=== PATIENT | female | born 1990 | race Caucasian/White ===

== ENCOUNTER 2019-06-22 15:06 | Emergency (ER) | payer SELFPAY ==
[2019-06-22 15:26] VITALS: BP 117/62
--- NOTE | 2019-06-22 15:35 | UC ---
Ear Complaint HPI - HPI Summary HPI Summary: 28 yo woman with URI x 4 days, with progressive ear pain and tinnitus, with decreased hearing on the left. Mildly painful. Hx of recurrent OM in early years , but not recently. - History of Current Complaint Chief Complaint: UCGeneralIllness Stated Complaint: EARS FULL,SINUS COMPLAINT Time Seen by Provider: 06/22/19 15:27 Hx Obtained From: Patient Hx Last Menstrual Period: 06/22/19 ?: No - menstruating now Onset/Duration: Gradual Onset, Lasting Days - 4 Severity Initially: Mild Severity Currently: Mild Pain Intensity: 0 Alleviating Factors: OTC Meds - using sudafed. Associated Signs/Symptoms: Positive: URI Symptoms - Allergies/Home Medications Allergies/Adverse Reactions: Allergies Allergy/AdvReac Type Severity Reaction Status Date / Time No Known Allergies Allergy Verified 06/22/19 15:20 Home Medications: Home Medications Pseudoephedrine HCl [Nasal Decongestant] 1 tab PO Q6H 06/22/19 [History Confirmed 06/22/19] PMH/Surg Hx/FS Hx/Imm Hx Previously Healthy: Yes - Surgical History Surgical History: Yes Surgery Procedure, Year, and Place: L trigger thumb - Family History Known Family History: Positive: None - parents alive and well., Other - sister has narcolepsy. - Social History Occupation: Employed Full-time Alcohol Use: None Substance Use Type: None Smoking Status (MU): Never Smoked Tobacco Review of Systems All Other Systems Reviewed And Are Negative: Yes Constitutional: Positive: Negative Skin: Positive: Negative Eyes: Positive: Negative ENT: Positive: Ear Ache, Nasal Discharge. Negative: Sinus Congestion, Sinus Pain/Tenderness Respiratory: Positive: Cough. Negative: Shortness Of Breath Cardiovascular: Positive: Negative Gastrointestinal: Positive: Negative Genitourinary: Positive: Negative Motor: Positive: Negative Neurovascular: Positive: Negative Neurological: Positive: Negative Psychological: Positive: Negative Is Patient Immunocompromised?: No Physical Exam Triage Information Reviewed: Yes Appearance: No Pain Distress, Ill-Appearing - congested, looks fatigued. Vital Signs: Initial Vital Signs Temp 97.5 F 06/22/19 15:20 Pulse 88 06/22/19 15:20 Resp 18 06/22/19 15:20 BP 117/62 06/22/19 15:20 Pulse Ox 100 06/22/19 15:20 ENT: Positive: Pharyngeal erythema, TM bulging - on left, with erythema and decreased light reflex, TM dull - right TM retracted. Dental Exam: Normal Respiratory: Positive: Lungs clear, Normal breath sounds Cardiovascular: Positive: RRR, No Murmur Musculoskeletal Exam: Normal Neurological Exam: Normal Neurological: Positive: Alert Psychological Exam: Normal Skin Exam: Normal Ear Complaint Course/Dx - Course Course Of Treatment: amoxicillin for otitis media, add fluticasone spray. - Differential Dx/Diagnosis Provider Diagnosis: Left otitis media Discharge ED - Sign-Out/Discharge Documenting (check all that apply): Patient Departure All imaging exams completed and their final reports reviewed: No Studies - Discharge Plan Condition: Stable Disposition: HOME Prescriptions: Amoxicillin PO (*) [Amoxicillin 875 MG (*)] 875 mg PO BID #14 tab Patient Education Materials: Ear Infection (ED) Referrals: No Primary Care Phys,NOPCP [Primary Care Provider] - Additional Instructions: Begin amoxicillin for treatment of otitis media. Add flonase (fluticsone) nasal spray to help to open the eustachian tubes. Anticipate that symptoms should improve in 2 to 3 days. - Billing Disposition and Condition Condition: STABLE Disposition: Home
== END 2019-06-22 15:47 | disposition home or self-care (01) ==
LOC: UCCORT 15:06
DX: H66.92 Otitis media, unspecified, left ear (principal); R09.89 Other specified symptoms and signs involving the circulatory and respiratory systems
CPT/HCPCS: 99202; G0463

== ENCOUNTER 2019-11-03 10:52 | Emergency (ER) | payer OTHER ==
--- NOTE | 2019-11-03 11:52 | UC ---
UC General HPI - HPI Summary HPI Summary: Fever 5 days Cough seems to have improved but still present +Bodyaches Good PO Vomited - 11 weeks - not sure if it was morning sickness No congestion No abdominal pain. No diarrhea PMhx: none Smoker: never Never needed an inhaler Here with two children both with similar symptoms - History of Current Complaint Chief Complaint: UCRespiratory Stated Complaint: FEVER, BODY ACHES Time Seen by Provider: 11/03/19 11:47 Hx Last Menstrual Period: 06/22/19 Pain Intensity: 3 - Allergy/Home Medications Allergies/Adverse Reactions: Allergies Allergy/AdvReac Type Severity Reaction Status Date / Time No Known Allergies Allergy Verified 11/03/19 11:15 Home Medications: Home Medications Acetaminophen TAB* [Tylenol TAB*] 650 mg PO Q4H PRN 11/03/19 [History Confirmed 11/03/19] Oseltamivir CAP* [Tamiflu CAP*] 75 mg PO BID #10 cap 11/03/19 [Rx] PMH/Surg Hx/FS Hx/Imm Hx Previously Healthy: Yes - Surgical History Surgical History: Yes Surgery Procedure, Year, and Place: L trigger thumb - Family History Known Family History: Positive: None - parents alive and well., Other - sister has narcolepsy. - Social History Alcohol Use: None Substance Use Type: None Smoking Status (MU): Never Smoked Tobacco Review of Systems All Other Systems Reviewed And Are Negative: Yes Constitutional: Positive: Fever, Chills Gastrointestinal: Positive: Vomiting, Nausea Physical Exam Triage Information Reviewed: Yes Appearance: Well-Appearing Vital Signs Reviewed: Yes Eyes: Positive: Conjunctiva Clear ENT: Positive: Pharyngeal erythema, TMs normal Neck: Positive: Supple, Nontender Respiratory: Positive: Lungs clear, Normal breath sounds Cardiovascular: Positive: RRR, No Murmur Course/Dx - Course Course Of Treatment: This is a 28 yr old with flu like illness - fever and bodyaches. Both children with her here today tested positive for flu A. Suspect this is a rare false negative test and because she is would treat her as if she has flu COVID also tested Nontoxic appearing Plan Presume Flu positive based on exposure Because you are would recommend starting tamiflu as directed Continue to rest, fluids and tylenol as directed as needed Continue to self quarantine until results are back and reported to you If your symptoms persist or worsen, recommend follow up with your PCP or return to urgent care or the ER - Diagnoses Provider Diagnosis: Influenza A Discharge ED - Sign-Out/Discharge Documenting (check all that apply): Patient Departure All imaging exams completed and their final reports reviewed: No Studies - Discharge Plan Condition: Fair Disposition: HOME Prescriptions: Oseltamivir CAP* [Tamiflu CAP*] 75 mg PO BID #10 cap Patient Education Materials: Influenza (ED) Forms: COVID-19 Tested & Isolation Referrals: [facility] [Outside] No Primary Care Phys,NOPCP [Primary Care Provider] - Additional Instructions: Presume Flu positive based on exposure Because you are would recommend starting tamiflu as directed Continue to rest, fluids and tylenol as directed as needed Continue to self quarantine until results are back and reported to you If your symptoms persist or worsen, recommend follow up with your PCP or return to urgent care or the ER - Billing Disposition and Condition Condition: FAIR Disposition: Home
[2019-11-03 12:32] VITALS: BP 112/73
[2019-11-03 12:43] LABS: Influenza A Molecular Negative (Negative); Influenza B Molecular Negative (Negative)
== END 2019-11-03 13:21 | disposition home or self-care (01) ==
LOC: UCCORT 10:52
DX: O26.891 Other specified pregnancy related conditions, first trimester (principal); J10.1 Influenza due to other identified influenza virus with other respiratory manifestations; Z20.828 Contact with and (suspected) exposure to other viral communicable diseases; Z3A.11 11 weeks gestation of pregnancy
CPT/HCPCS: 87635; 99212; G0463